=== PATIENT | male | born 1985 | race Two or more races ===

== ENCOUNTER 2020-08-21 10:49 | Emergency (ER) | payer SELFPAY ==
--- NOTE | 2020-08-21 12:00 | EDM.PDOC ---
ED HPI GENERAL MEDICAL PROBLEM - General Chief Complaint: Skin Complaint Stated Complaint: BACK PAIN Time Seen by Provider: 08/21/20 11:06 Source of Information: Reports: Patient, RN Notes Reviewed History Limitations: Reports: No Limitations - History of Present Illness INITIAL COMMENTS - FREE TEXT/NARRATIVE: Patient is a 34-year-old male presenting to the emergency department with complaints of a painful bump on his rectum. Reports symptoms have been present for 3 days but significantly worse yesterday and today. He denies any fever, chills, nausea, or vomiting. He has had no drainage from the area that he is aware of. Denies any history of similar occurrences. 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 [No Known Home Meds] 08/21/20 [History] Past Medical History - Past Health History Medical/Surgical History: Denies Medical/Surgical History HEENT History: Reports: None Cardiovascular History: Reports: None Respiratory History: Reports: None Gastrointestinal History: Reports: None Genitourinary History: Reports: None Musculoskeletal History: Reports: None Neurological History: Reports: None Psychiatric History: Reports: None Endocrine/Metabolic History: Reports: None Hematologic History: Reports: None Immunologic History: Reports: None Oncologic (Cancer) History: Reports: None Dermatologic History: Reports: None - Infectious Disease History Infectious Disease History: Reports: None - Past Surgical History Respiratory Surgical History: Reports: None GI Surgical History: Reports: None Social & Family History - Family History Family Medical History: No Pertinent Family History - Tobacco Use Tobacco Use Status *Q: Current Every Day Tobacco User Years of Tobacco use: 14 Packs/Tins Daily: 1 - Caffeine Use Caffeine Use: Reports: Coffee, Energy Drinks, Soda - Alcohol Use Number of Drinks Per Day: 6 - Recreational Drug Use Recreational Drug Use: No ED ROS GENERAL - Review of Systems Review Of Systems: Comprehensive ROS is negative, except as noted in HPI. ED EXAM, SKIN/RASH Exam: See Below General Appearance: Alert, WD/WN, No Apparent Distress Respiratory/Chest: No Respiratory Distress, Lungs Clear, Normal Breath Sounds, No Accessory Muscle Use, Chest Non-Tender Cardiovascular: Normal Peripheral Pulses, Regular Rate, Rhythm, No Edema, No Gallop, No JVD, No Murmur, No Rub Rectal (Males) Exam: Hemorrhoids (Large thrombosed at the 9 o'clock position. No bleeding or drainage.) Neurological: Alert, Oriented, CN II-XII Intact, Normal Cognition, Normal Gait, Normal Reflexes, No Motor/Sensory Deficits Psychiatric: Normal Affect, Normal Mood Course - Vital Signs Last Recorded V/S: Last Vital Signs Temp 97.3 F 08/21/20 11:07 Pulse 82 08/21/20 11:07 Resp 20 08/21/20 11:07 BP 149/94 H 08/21/20 11:07 Pulse Ox 98 08/21/20 11:07 - Re-Assessments/Exams Free Text/Narrative Re-Assessment/Exam: Patient is a 34-year-old male presenting to the emergency department with complaints of a painful bump near his rectum. 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 On exam, he does have a large thrombosed hemorrhoid at the 9 o'clock position. There is no bleeding or drainage. We will have patient start treatment of Preparation H and Tucks pads. I will send a referral to general surgeon, Dr. Hoyt, for follow-up should symptoms not improve. Patient is in agreement with this. Discharge instructions as documented. Departure - Departure Time of Disposition: 11:57 Disposition: Home, Self-Care 01 Condition: Good Clinical Impression: Hemorrhoid Qualifiers: Hemorrhoid type: perianal venous thrombosis Qualified Code(s): K64.5 - Perianal venous thrombosis - Discharge Information *PRESCRIPTION DRUG MONITORING PROGRAM REVIEWED*: No *COPY OF PRESCRIPTION DRUG MONITORING REPORT IN PATIENT STEW: No Instructions: Hemorrhoids, [id number] Referrals: Kranthi Hoyt MD [Physician] - Additional Instructions: You were seen in the emergency department today for a painful bump near your rectum. On exam, you have a large thrombosed hemorrhoid. Recommend Preparation H and Tucks pads for treatment. These may be purchased [id number] at [employer] or any drugstore. Symptoms should begin to improve over the next few days. If you do not see improvement, a referral has been sent to general surgeon, Dr. Hoyt. You may follow-up with him by calling and scheduling appointment at the number listed below. If you should experience any new or worsening symptoms, please not hesitate to return to the emergency department for reevaluation. Hoy lo vieron en el departamento de emergencias por un bulto doloroso cerca de portillo recto. En el examen, tiene mayra gran hemorroide trombosada. Recomendar las almohadillas Preparation H y Tucks para el tratamiento. Estos se pueden comprar sin receta en [employer] o en cualquier farmacia. Los sntomas deberan comenzar a mejorar en los prximos armstrong. Si no ve mayra mejora, se delgado enviado mayra remisin al cirujano general, Dr. Hoyt. Puede hacer un seguimiento con l llamando y pr ogramando mayra mariaa al nmero que se indica a continuacin. Si experimenta algn sntoma nuevo o que empeora, no dude en regresar al departamento de emergencias para mayra reevaluacin. Sepsis Event Note (ED) - Evaluation Sepsis Screening Result: No Definite Risk - Focused Exam Vital Signs: Vital Signs Temp Pulse Resp BP Pulse Ox 08/21/20 11:07 97.3 F 82 20 149/94 H 98
== END 2020-08-21 12:20 | disposition home or self-care (01) ==
LOC: JD.ED 10:49
DX: K64.5 Perianal venous thrombosis (principal); Z72.0 Tobacco use
CPT/HCPCS: 99282; 99283

== ENCOUNTER 2021-02-20 16:21 | Emergency (ER) | payer SELFPAY ==
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
[2021-02-20] MEDS ORDERED: ARIPiprazole 5 MG Tab PO ONE (17:21)
[2021-02-20 17:38] LABS: ACETAMINOPHEN 0 ug/mL (10-30)
[2021-02-20] MEDS ORDERED: LORazepam 2 MG/ML SDV IVPUSH ONE (18:23)
[2021-02-20] MEDS ORDERED: LORazepam 1 MG Tab PO ONE (18:39)
[2021-02-20 22:11] LABS: CORONAVIRUS COVID-19 NAA NEGATIVE (NEGATIVE)
== END 2021-02-20 22:39 ==
LOC: JD.ED 16:21
DX: F32.A Depression, unspecified (principal); R44.0 Auditory hallucinations; F10.20 Alcohol dependence, uncomplicated; F19.10 Other psychoactive substance abuse, uncomplicated; Z72.0 Tobacco use; Z20.822 Contact with and (suspected) exposure to COVID-19
CPT/HCPCS: 0240U; 36415; 80053; 80143; 80179; 80306; 80307; 83690; 83735; 85025; 85610; 85730; 93005; 99285; A9270; 93010

== ENCOUNTER 2021-08-20 16:18 | Emergency (ER) | payer SELFPAY ==
[2021-08-20] MEDS ORDERED: Sodium Chloride 0.9% 10 ML Syringe FLUSH PRN (18:06)
[2021-08-20] MEDS ORDERED: Sodium Chloride 0.9% 1,000 ML IV ONE (18:08)
== END 2021-08-20 22:11 | disposition other institution (70) ==
LOC: JD.ED 16:18
DX: F10.20 Alcohol dependence, uncomplicated (principal)
CPT/HCPCS: 36415; 80053; 80143; 80179; 80306; 80307; 81001; 83735; 84443; 85025; 99284; J3490; J7030; 99282